=== PATIENT | male | born 1995 | race Asian ===

== ENCOUNTER 2019-05-18 20:28 | Emergency (ER) | payer SELFPAY ==
[2019-05-18] MEDS ORDERED: Labetalol 100 MG/20 ML MDV IVPUSH ONE (21:11)
[2019-05-18 21:57] LABS: BLOOD UREA NITROGEN,BUN 18 mg/dL (7.0-18.0); CARBON DIOXIDE,CO2 26.8 mmol/L (21.0-32.0); CHLORIDE,CL 107 mmol/L (98-107); GLUCOSE RANDOM 101 mg/dL (74-106); POTASSIUM,K 3.8 mmol/L (3.5-5.1); SODIUM,NA 141 mmol/L (136-148)
[2019-05-18] MEDS ORDERED: Aspirin 81 MG Tab.Chew PO ONE (22:07)
[2019-05-18] MEDS: Nitroglycerin 0.4 MG Tab.SL SL PRN ×3 (22:19→22:42)
--- NOTE | 2019-05-18 22:32 | CR ---
INDICATION: Y[place] TECHNIQUE: Chest radiograph 1 view COMPARISON: None FINDINGS: Mediastinum: The mediastinum is normal in appearance. Moderate to severe cardiomegaly is noted. Lung: Small lung volumes are present with bibasilar atelectasis. Mild interstitial edema suspected. No sign of pleural effusion seen. No pneumothorax is identified. Bone and Soft tissue: Unremarkable for age. IMPRESSIONS: 1. Moderate to severe cardiomegaly is noted. 2. Small lung volumes are present with bibasilar atelectasis. Mild interstitial edema suspected. Dictated by Tyrone Villatoro MD @ 05/18/2019 10:30:27 PM Dictated by: Tyrone Villatoro MD @ 05/18/2019 22:30:30 (Electronically Signed)
--- NOTE | 2019-05-18 22:33 | EDM.PDOC ---
ED HPI GENERAL MEDICAL PROBLEM - General Chief Complaint: Respiratory Problem Stated Complaint: UNKNOWN Time Seen by Provider: 05/18/19 22:28 Source of Information: Reports: Patient History Limitations: Reports: No Limitations - History of Present Illness INITIAL COMMENTS - FREE TEXT/NARRATIVE: 24-year-old male this is a 24-year-old male who presents the emergency room with a chief complaint of shortness of breath dyspnea on exertion and on his chest when he lays down. Patient has no past medical history of anything. Patient is on no medication. Patient does have a family history of high blood pressure. Patient denies chills and fever and feeling weak or dizzy. Patient denies exposure to coronavirus. Having no chest pain Onset: Today Duration: Day(s): Location: Reports: Chest Severity: Moderate Improves with: Reports: None Worsens with: Reports: None Associated Symptoms: Reports: Chest Pain (Pain is described as a heaviness when he lays down) - Related Data Allergies Allergy/AdvReac Type Severity Reaction Status Date / Time No Known Allergies Allergy Verified 05/18/19 20:37 Home Meds: Home Meds . [No Known Home Meds] 05/18/19 [History] Past Medical History - Past Health History Medical/Surgical History: Denies Medical/Surgical History - Infectious Disease History Infectious Disease History: Reports: None Social & Family History - Family History Family Medical History: Noncontributory - Tobacco Use Smoking Status *Q: Never Smoker - Caffeine Use Caffeine Use: Reports: Tea - Recreational Drug Use Recreational Drug Use: No ED ROS GENERAL - Review of Systems Review Of Systems: See Below Constitutional: Reports: No Symptoms HEENT: Reports: No Symptoms Respiratory: Reports: Shortness of Breath Cardiovascular: Reports: Chest Pain, Blood Pressure Problem, Dyspnea on Exertion , Orthopnea Endocrine: Reports: No Symptoms GI/Abdominal: Reports: No Symptoms : Reports: No Symptoms Musculoskeletal: Reports: No Symptoms Skin: Reports: No Symptoms Neurological: Reports: No Symptoms Psychiatric: Reports: No Symptoms Hematologic/Lymphatic: Reports: No Symptoms Immunologic: Reports: No Symptoms ED EXAM, GENERAL - Physical Exam Exam: See Below Free Text/Narrative:: 24-year-old male with dyspnea on exertion and heaviness. Lungs are clear to auscultation. Abdomen soft nontender Extremities are normal no signs of edema Exam Limited By: No Limitations General Appearance: Alert, WD/WN, No Apparent Distress, Mild Distress Eye Exam: Bilateral Eye: Normal Fundi, Normal Inspection Ear Exam: Bilateral Ear: Auricle Normal, Canal Normal Nose: Normal Inspection, Normal Mucosa Throat/Mouth: Normal Inspection, Normal Lips Head: Atraumatic Neck: Normal Inspection Respiratory/Chest: No Respiratory Distress, Lungs Clear Cardiovascular: Normal Peripheral Pulses, Regular Rate, Rhythm, No Edema GI/Abdominal: Normal Bowel Sounds Back Exam: Normal Inspection Extremities: Normal Inspection, Normal Range of Motion, No Pedal Edema, Normal Capillary Refill Neurological: Alert, Oriented, CN II-XII Intact, Normal Reflexes, No Motor/ Sensory Deficits Psychiatric: Normal Affect, Normal Mood Skin Exam: Warm, Dry, Intact Lymphatic: No Adenopathy EKG INTERPRETATION Rhythm: NSR [place]: Normal QRS: Normal ST-T: Normal QT: Normal Course - Vital Signs Text/Narrative:: 24-year-old male with a positive troponin of 0.11 patient also has severe CHF on x-ray. Patient's hypertension is under control initially 200/130 now blood pressure is down to 170/130s. Patient is refusing to be transferred. Patient states he is worried about the money. Informed patient he could possibly . He states he would rather sign out AGAINST MEDICAL ADVICE and not being transferred to the hospital. I spoke to patient at length about his disease i.e. his heart disease extreme always hard his blood pressure. Nurse also attempted to get the patient admitted to the hospital for care. Patient has refused all attempts and is signing out AGAINST MEDICAL ADVICE. Patient had been accepted by Dr. Mclean at [facility]. Last Recorded V/S: Last Vital Signs Temp 96.1 F L 05/18/19 21:55 Pulse 86 05/18/19 22:39 Resp 20 05/18/19 22:32 BP 169/129 H 05/18/19 22:42 Pulse Ox 97 05/18/19 22:39 - Orders/Labs/Meds Orders: Active Orders 24 hr Category Date Time Status EKG 12 Lead [EKG Documentation Completion] [RC] STAT Care 05/18/19 21:07 Active Labs: Laboratory Tests 05/18/19 05/18/19 Range/Units 21:25 21:25 WBC 10.42 (4.0-11.0) K/uL RBC 7.30 H (4.50-5.90) M/uL Hgb 14.9 (13.0-17.0) g/dL Hct 46.7 (38.0-50.0) % MCV 64.0 L (80.0-98.0) fL MCH 20.4 L (27.0-32.0) pg MCHC 31.9 (31.0-37.0) g/dL RDW Std Deviation 38.8 (28.0-62.0) fl RDW Coeff of Jorge A 18 H (11.0-15.0) % Plt Count 230 (150-400) K/uL Neut % (Auto) 65.2 (48.0-80.0) % Lymph % (Auto) 25.4 (16.0-40.0) % [place] % (Auto) 7.0 (0.0-15.0) % Eos % (Auto) 1.8 (0.0-7.0) % Baso % (Auto) 0.6 (0.0-1.5) % Neut # (Auto) 6.8 H (1.4-5.7) K/uL Lymph # (Auto) 2.7 H (0.6-2.4) K/uL Gordon # (Auto) 0.7 (0.0-0.8) K/uL Eos # (Auto) 0.2 (0.0-0.7) K/uL Baso # (Auto) 0.1 (0.0-0.1) K/uL Nucleated RBC % 0.0 /100WBC Nucleated RBCs # 0 K/uL Sodium 141 (136-148) mmol/L Potassium 3.8 (3.5-5.1) mmol/L Chloride 107 (98-107) mmol/L Carbon Dioxide 26.8 (21.0-32.0) mmol/L BUN 18 (7.0-18.0) mg/dL Creatinine 1.4 H (0.8-1.3) mg/dL Est Cr Clr Drug Dosing 79.96 mL/min Estimated GFR (MDRD) > 60.0 ml/min Glucose 101 (74-106) mg/dL Calcium 7.8 L (8.5-10.1) mg/dL Total Bilirubin 0.8 (0.2-1.0) mg/dL AST 88 H (15-37) IU/L ALT 217 H (14-63) IU/L Alkaline Phosphatase 56 (46-116) U/L Troponin I 0.116 H* (0.000-0.056) ng/mL Total Protein 5.9 L (6.4-8.2) g/dL Albumin 2.6 L (3.4-5.0) g/dL Globulin 3.3 (2.6-4.0) g/dL Albumin/Globulin Ratio 0.8 L (0.9-1.6) Meds: Medications Discontinued Medications Generic Name Dose Route Start Last Admin Trade Name Freq PRN Reason Stop Dose Admin Aspirin 324 mg 05/18/19 22:07 05/18/19 22:17 Aspirin PO 05/18/19 22:08 324 mg ONETIME ONE Administration Sodium Chloride 125 mls @ 1,000 mls/hr 05/18/19 21:09 05/18/19 21:25 Normal Saline IV 05/18/19 21:16 1,000 mls/hr .Bolus ONE Administration Labetalol HCl 20 mg 05/18/19 21:11 05/18/19 21:50 Normodyne IVPUSH 05/18/19 21:12 20 mg ONETIME ONE Administration Protocol Nitroglycerin 0.4 mg 05/18/19 22:07 05/18/19 22:42 Nitrostat SL 0.4 mg Q5M PRN Administration Chest Pain Departure - Departure Time of Disposition: 23:25 Disposition: Against Medical Advice 07 Clinical Impression: NSTEMI (non-ST elevated myocardial infarction), Congestive heart failure - Discharge Information Referrals: PCP,Unobtain [Primary Care Provider] - Forms: ED Department Discharge Sepsis Event Note - Evaluation Sepsis Screening Result: No Definite Risk - Focused Exam Vital Signs: Vital Signs Temp Pulse Resp BP BP Pulse Ox 05/18/19 22:42 169/129 H 05/18/19 22:39 86 97 05/18/19 22:32 85 20 97 05/18/19 22:26 170/129 H 05/18/19 22:25 85 20 97 05/18/19 22:19 164/128 H 05/18/19 21:59 86 21 H 179/137 H 96 05/18/19 21:55 96.1 F L 88 20 177/136 H 97 05/18/19 21:16 107 H 20 191/145 H 98 03/21/20 20:38 95.5 F L 109 H 17 214/158 H 97 Date Exam was Performed: 05/18/19 Time Exam was Performed: 23:21 - My Orders Last 24 Hours: My Active Orders 05/18/19 21:07 EKG 12 Lead [EKG Documentation Completion] [RC] STAT - Assessment/Plan Last 24 Hours: My Active Orders 05/18/19 21:07 EKG 12 Lead [EKG Documentation Completion] [RC] STAT
== END 2019-05-18 23:45 | disposition left against medical advice (07) ==
LOC: MW.ED 20:28
DX: I21.4 Non-ST elevation (NSTEMI) myocardial infarction (principal); I50.9 Heart failure, unspecified
CPT/HCPCS: 36415; 71045; 80053; 84484; 85025; 93005; 96361; 96374; 99285; A9270; J3490; J7030; 99284

== ENCOUNTER 2019-05-20 15:48 | Emergency (ER) | payer SELFPAY ==
[2019-05-20] MEDS ORDERED: Labetalol 100 MG/20 ML MDV IVPUSH ONE ×3 (16:12→20:01)
--- NOTE | 2019-05-20 16:12 | EDM.PDOC ---
ED HPI GENERAL MEDICAL PROBLEM - General Chief Complaint: Respiratory Problem Stated Complaint: SOB Time Seen by Provider: 05/20/19 16:09 Source of Information: Reports: Patient, Old Records History Limitations: Reports: No Limitations - History of Present Illness INITIAL COMMENTS - FREE TEXT/NARRATIVE: Patient is a 24-year-old male who was sent to us from our clinic for continuing shortness of breath with recently elevated cardiac enzymes. Patient was seen in the emergency department on 05/18/2019 and ended up signing out AGAINST MEDICAL ADVICE after he was diagnosed with an NSTEMI with a troponin of 0.114 and symptoms of shortness of breath. Patient states his shortness of breath started approximately 4 days ago and it is worse when he lays down at night and slightly worse with exertion. He denies any cough or any fever or chills. He is complaining of having some swelling to both ankles that started since his last ER visit. He has not had similar symptoms in the past and is not a cigarette smoker and has no painting virus exposure. Is using any street drugs and denies any chest pain or pressure. He denies any bloody or tarry looking stools. He had a very elevated blood pressure with his last visit and been treated with some beta-jose at that time and returns today with even more elevated blood pressure than prior. He denies any history of hypercholesterolemia hypertension diabetes or positive family history for coronary artery disease. He has never been told he had anything wrong with his heart previously. Duration: Day(s): (4 days), Waxing/Waning Location: Reports: Chest Severity: Moderate Improves with: Reports: None Worsens with: Reports: Rest (And laying down. Mildly worse with exertion.) Associated Symptoms: Reports: Shortness of Breath. Denies: Chest Pain, Cough, Diaphoresis, Nausea/Vomiting - Related Data Allergies Allergy/AdvReac Type Severity Reaction Status Date / Time No Known Allergies Allergy Verified 05/20/19 15:56 Home Meds: Home Meds . [No Known Home Meds] 05/18/19 [History] Past Medical History - Past Health History Medical/Surgical History: Denies Medical/Surgical History - Infectious Disease History Infectious Disease History: Reports: Chicken Pox Social & Family History - Family History Family Medical History: Noncontributory - Tobacco Use Smoking Status *Q: Never Smoker - Caffeine Use Caffeine Use: Reports: Tea ED ROS GENERAL - Review of Systems Review Of Systems: Comprehensive ROS is negative, except as noted in HPI. ED EXAM, GENERAL - Physical Exam Exam: See Below General Appearance: Alert, No Apparent Distress Throat/Mouth: Normal Inspection Head: Atraumatic, Normocephalic Neck: Normal Inspection, Supple Respiratory/Chest: No Respiratory Distress, Lungs Clear, Normal Breath Sounds. No: Decreased Breath Sounds, Rales, Wheezing, Retractions Cardiovascular: Regular Rate, Rhythm, No JVD GI/Abdominal: Normal Bowel Sounds, Soft, Non-Tender, Other (Positive for obesity.) Back Exam: Normal Inspection. No: CVA Tenderness (L), CVA Tenderness (R) Extremities: Other (Is a 4+1 nonpitting pedal edema.) Neurological: Alert, Oriented, Normal Cognition Psychiatric: Normal Affect Skin Exam: Warm, Dry EKG INTERPRETATION EKG Date: 05/18/19 Comparison: No Change Course - Vital Signs Text/Narrative:: Patient's EKG is unchanged from what it was [address] depression and T wave inversion mainly in the lateral leads. His troponin tonight is slightly increased at 0.124. And he has an elevated BNP at 1300 chest x-ray shows him to have slightly worsening cardio myopathy. He had an elevated d- dimer and underwent a CTA which shows him to have small bilateral effusions and other findings consistent with CHF. Patient was given several doses of labetalol for his extremely elevated blood pressure only had a minor effect but I am placing him on a labetalol drip. I discussed him with our hospitalist service who is uncomfortable admitting him since we have no satin finisher and due to his elevated cardiac enzymes and blood pressure. I then discussed with Dr. Saldana who is a satin finisher at [facility] has accepted him in transfer and then discussed with Dr. Figueroa who is the ER attending who is accepted him for transfer. I overlooked telling both of them about his elevated blood pressure. Patient is agreeable going by ambulance to [place] Last Recorded V/S: Last Vital Signs Temp 35.2 C L 05/20/19 15:54 Pulse 96 05/20/19 18:40 Resp 18 05/20/19 18:40 BP 196/144 H 05/20/19 18:40 Pulse Ox 96 05/20/19 18:40 - Orders/Labs/Meds Orders: Active Orders 24 hr Category Date Time Status EKG 12 Lead [EKG Documentation Completion] [RC] STAT Care 05/20/19 16:11 Active Labetalol [Normodyne] 100 mg Med 05/20/19 19:15 Active Sodium Chloride 0.9% [Normal Saline] 80 ml IV TITRATE Medication Orders Labetalol HCl 100 mg/ Sodium (Chloride) 100 mls @ 30 mls/hr IV TITRATE NBA; Protocol Labs: Laboratory Tests 05/20/19 05/20/19 05/20/19 Range/Units 16:05 16:05 16:05 WBC 10.89 (4.0-11.0) K/uL RBC 7.45 H (4.50-5.90) M/uL Hgb 15.3 (13.0-17.0) g/dL Hct 47.6 (38.0-50.0) % MCV 63.9 L (80.0-98.0) fL MCH 20.5 L (27.0-32.0) pg MCHC 32.1 (31.0-37.0) g/dL RDW Std Deviation 38.8 (28.0-62.0) fl RDW Coeff of Jorge A 18 H (11.0-15.0) % Plt Count 257 (150-400) K/uL MPV (7.40-12.00) fL Neut % (Auto) 66.5 (48.0-80.0) % Lymph % (Auto) 25.9 (16.0-40.0) % [place] % (Auto) 6.8 (0.0-15.0) % Eos % (Auto) 0.4 (0.0-7.0) % Baso % (Auto) 0.4 (0.0-1.5) % Neut # (Auto) 7.3 H (1.4-5.7) K/uL Lymph # (Auto) 2.8 H (0.6-2.4) K/uL [place] # (Auto) 0.7 (0.0-0.8) K/uL Eos # (Auto) 0.0 (0.0-0.7) K/uL Baso # (Auto) 0.0 (0.0-0.1) K/uL Nucleated RBC % 0.0 /100WBC Nucleated RBCs # 0 K/uL D-Dimer, Quantitative 4.20 H (0.0-0.50) mg/L FEU Lactate 1.3 (0.20-2.00) mmol/L Sodium (136-148) mmol/L Potassium (3.5-5.1) mmol/L Chloride (98-107) mmol/L Carbon Dioxide (21.0-32.0) mmol/L BUN (7.0-18.0) mg/dL Creatinine (0.8-1.3) mg/dL Est Cr Clr Drug Dosing mL/min Estimated GFR (MDRD) ml/min Glucose (74-106) mg/dL Calcium (8.5-10.1) mg/dL Total Bilirubin (0.2-1.0) mg/dL AST (15-37) IU/L ALT (14-63) IU/L Alkaline Phosphatase (46-116) U/L Troponin I (0.000-0.056) ng/mL B-Natriuretic Peptide (<100) PG/ML Total Protein (6.4-8.2) g/dL Albumin (3.4-5.0) g/dL Globulin (2.6-4.0) g/dL Albumin/Globulin Ratio (0.9-1.6) 05/20/19 05/20/19 Range/Units 16:05 16:05 WBC (4.0-11.0) K/uL RBC (4.50-5.90) M/uL Hgb (13.0-17.0) g/dL Hct (38.0-50.0) % MCV (80.0-98.0) fL MCH (27.0-32.0) pg MCHC (31.0-37.0) g/dL RDW Std Deviation (28.0-62.0) fl RDW Coeff of Jorge A (11.0-15.0) % Plt Count (150-400) K/uL MPV (7.40-12.00) fL Neut % (Auto) (48.0-80.0) % Lymph % (Auto) (16.0-40.0) % [place] % (Auto) (0.0-15.0) % Eos % (Auto) (0.0-7.0) % Baso % (Auto) (0.0-1.5) % Neut # (Auto) (1.4-5.7) K/uL Lymph # (Auto) (0.6-2.4) K/uL [place] # (Auto) (0.0-0.8) K/uL Eos # (Auto) (0.0-0.7) K/uL Baso # (Auto) (0.0-0.1) K/uL Nucleated RBC % /100WBC Nucleated RBCs # K/uL D-Dimer, Quantitative (0.0-0.50) mg/L FEU Lactate (0.20-2.00) mmol/L Sodium 141 (136-148) mmol/L Potassium 4.1 (3.5-5.1) mmol/L Chloride 108 H (98-107) mmol/L Carbon Dioxide 22.4 (21.0-32.0) mmol/L BUN 16 (7.0-18.0) mg/dL Creatinine 1.3 (0.8-1.3) mg/dL Est Cr Clr Drug Dosing 88.91 mL/min Estimated GFR (MDRD) > 60.0 ml/min Glucose 103 (74-106) mg/dL Calcium 8.0 L (8.5-10.1) mg/dL Total Bilirubin 1.2 H (0.2-1.0) mg/dL AST 95 H (15-37) IU/L ALT 234 H (14-63) IU/L Alkaline Phosphatase 57 (46-116) U/L Troponin I 0.128 H* (0.000-0.056) ng/mL B-Natriuretic Peptide 1340 H (<100) PG/ML Total Protein 6.0 L (6.4-8.2) g/dL Albumin 2.7 L (3.4-5.0) g/dL Globulin 3.3 (2.6-4.0) g/dL Albumin/Globulin Ratio 0.8 L (0.9-1.6) Meds: Medications Generic Name Dose Route Start Last Admin Trade Name Freq PRN Reason Stop Dose Admin Labetalol HCl 100 mg/ Sodium 100 mls @ 30 mls/hr 05/20/19 19:15 Chloride IV TITRATE NBA Protocol 0.5 MG/MIN Discontinued Medications Generic Name Dose Route Start Last Admin Trade Name Freq PRN Reason Stop Dose Admin Iopamidol 50 ml 05/20/19 17:53 05/20/19 17:54 Isovue Multipack-370 (76%) IVPUSH 05/20/19 17:54 50 ml ONETIME STA Administration Labetalol HCl 20 mg 05/20/19 16:12 05/20/19 16:36 Normodyne IVPUSH 05/20/19 16:13 20 mg ONETIME ONE Administration Protocol Labetalol HCl 20 mg 05/20/19 17:56 05/20/19 18:43 Normodyne IVPUSH 05/20/19 17:57 20 mg ONETIME ONE Administration Protocol Departure - Departure Time of Disposition: 19:31 Disposition: DC/Tfer to Acute Hospital 02 Condition: Good Clinical Impression: CHF (congestive heart failure), Cardiomyopathy, Hypertensive urgency - Discharge Information Referrals: Lin Hernández PA [Primary Care Provider] - Forms: ED Department Discharge Sepsis Event Note - Evaluation Sepsis Screening Result: No Definite Risk - Focused Exam Vital Signs: Vital Signs Temp Pulse Resp BP Pulse Ox 05/20/19 18:40 96 18 196/144 H 96 05/20/19 17:29 89 16 181/135 H 98 05/20/19 16:38 95 18 215/163 H 97 05/20/19 16:09 103 H 16 196/145 H 98 05/20/19 15:54 35.2 C L 105 H 20 199/151 H 98 Date Exam was Performed: 05/20/19 Time Exam was Performed: 19:23 - My Orders Last 24 Hours: My Active Orders 05/20/19 16:11 EKG 12 Lead [EKG Documentation Completion] [RC] STAT 05/20/19 19:15 Labetalol [Normodyne] 100 mg Sodium Chloride 0.9% [Normal Saline] 80 ml IV TITRATE - Assessment/Plan Last 24 Hours: My Active Orders 05/20/19 16:11 EKG 12 Lead [EKG Documentation Completion] [RC] STAT 05/20/19 19:15 Labetalol [Normodyne] 100 mg Sodium Chloride 0.9% [Normal Saline] 80 ml IV TITRATE
[2019-05-20 16:53] LABS: BLOOD UREA NITROGEN,BUN 16 mg/dL (7.0-18.0); CARBON DIOXIDE,CO2 22.4 mmol/L (21.0-32.0); CHLORIDE,CL 108 mmol/L (98-107); GLUCOSE RANDOM 103 mg/dL (74-106); POTASSIUM,K 4.1 mmol/L (3.5-5.1); SODIUM,NA 141 mmol/L (136-148)
--- NOTE | 2019-05-20 17:32 | CR ---
Chest: 2 views of the chest were obtained. Comparison: Prior chest x-ray of 05/18/19. Heart is enlarged. Pulmonary vessels show mild pulmonary vascular congestion. Lungs otherwise are clear. Bony structures are unremarkable for the patient's age. Impression: 1. Cardiomegaly with mild pulmonary vascular congestion. Diagnostic code #3 This report was dictated in MDT
[2019-05-20] MEDS ORDERED: Iopamidol 755 MG/ML 500 ML Multipack Bottle IVPUSH STA (17:53)
--- NOTE | 2019-05-20 18:13 | CT ---
CT chest Technique: Multiple axial sections through the chest were obtained. Intravenous contrast was utilized. Study performed as a pulmonary angiogram protocol. Comparison: No prior chest CT study, previous chest x-ray of 05/20/19. Findings: Pulmonary arteries are well opacified. No filling defects are seen to indicate pulmonary embolism. Aorta shows no aneurysm. Heart is enlarged. No pericardial effusion is seen. Small bilateral pleural effusions are present. Haziness is noted around the pulmonary vessels which is felt compatible with mild pulmonary vascular congestion. Bone window settings were reviewed which appear within normal limits for the patient's age. Impression: 1. Findings most compatible with CHF. 2. No findings of pulmonary embolism. Diagnostic code #3 This report was dictated in MDT
[2019-05-20] MEDS ORDERED: Labetalol 100 MG in Sodium Chloride 0.9% 80 ML IV SCH (19:15)
== END 2019-05-20 20:10 ==
LOC: MW.ED 15:48
DX: I16.0 Hypertensive urgency (principal); I50.9 Heart failure, unspecified; I42.9 Cardiomyopathy, unspecified
CPT/HCPCS: 36415; 71046; 71275; 80053; 83605; 83880; 84484; 85025; 85379; 93005; J3490; Q9967; 96374; 96376; 99285-25